=== PATIENT | male | born 1985 | race Caucasian/White ===

== ENCOUNTER 2022-10-03 18:24 | Observation (INO) | payer OTHER, SELFPAY ==
[2022-10-03] VITALS (10 sets, daily range): BP systolic 148–168; BP diastolic 73–89; PULSE 59–92; RESP 13–22; TEMP 36.2–36.5; O2SAT 97–100; BMI 39.4
--- NOTE | ~2022-10-03 | CT_ITS ---
EXAMINATION: CT abdomen pelvis wo con DATE: 10/03/2022 20:50 INDICATION: RUQ/RLQ pain, vomiting TECHNIQUE: Computed tomography (CT) of the abdomen and pelvis was performed without intravenous contr ast. Automated exposure control and iterative reconstruction technique were employed. The dose-length product was 1511.47 mGy-cm. COMPARISON: None. FINDINGS: Lower thorax: Minimal symmetric bilateral gynecomastia. Peripheral scar/granuloma in the right lower lobe. Liver: Normal. Biliary/Gallbladder: Gallbladder is absent. No bile duct dilation. Pancreas: No mass or duct dilation. Spleen: Normal. Adrenals:No mass. Kidneys: No mass, stone, or hydronephrosis. GI tract: Focal outpouching along the posterior margin of the first portion of the duodenum, with key rounding inflammatory change and prominent lymph nodes. Submucosal fat in the antrum, distal duodenum , as can be seen with chronic IBD, obesity, chemotherapy treatment, and celiac disease. No small or large bowel dilation. Normal appendix. Diverticulosis without diverticulitis. Mesentery/Peritoneum: No ascites, mass, or free air. Retroperitoneum: No mass. Pelvis: Pelvic organs are within normal limits. Soft Tissues: Soft tissues and body wall unremarkable. Bones: No acute osseous finding. IMPRESSION: Duodenal ulcer with surrounding duodenitis. No evidence of perforation. Reviewed, dictated and finalized at location K.
[2022-10-03 18:59] LABS: Basophils Percent Auto 0.3 % (0.2-1.2); Eosinophils Absolute Auto 0.2 K/mm3 (0-0.3); Hematocrit 39.8 % (42.0-52.0); Hemoglobin 13.5 g/dL (14.0-18.0); Immature Granulocyte Absolute 0.03 K/mm3 (0.00-0.031); Immature Granulocyte Percent A 0.3 % (0-0.5); Lymphocytes Percent Auto 27.6 % (18.3-44.2); Mean Corpuscular HGB Conc 33.9 g/dl (32-36); Mean Corpuscular Hemoglobin 32.5 pg (26-34); Mean Corpuscular Volume 95.7 fl (80-100); Mean Platelet Volume 9.9 fl (7.4-10.4); Monocytes Absolute Auto 0.5 K/mm3 (0.1-0.6); Monocytes Percent Auto 4.7 % (2.6-8.5); Neutrophils Absolute Auto 6.9 K/mm3 (1.3-6.7); Neutrophils Percent Auto 65.1 % (45.5-73.1); Platelet Count Result 455 k/mm3 (150-375); Red Blood Count 4.16 M/mm3 (4.6-6.20); White Blood Count 10.5 K/mm3 (4.5-10.0)
[2022-10-03 19:08] LABS: Alanine Aminotransferase 84 U/L (6-50); Albumin Level 4.8 g/dL (3.5-5.1); Alkaline Phosphatase 85 U/L (38-126); Anion Gap 10 mmol/L (8-16); Aspartate Amino Transferase 30 U/L (17-59); Bilirubin,Total 0.5 mg/dL (0.2-1.3); Blood Urea Nitrogen 12 mg/dL (9-20); Calcium 10.6 mg/dL (8.4-10.2); Carbon Dioxide 25 mmol/L (22-30); Chloride 106 mmol/L (98-107); Estimated CRCL calculation 108 ml/min; Estimated Glomerular Filt Rate > 60; Glucose 119 mg/dL (65-110); Lipase 146 U/L (23-300); Potassium 3.9 mmol/L (3.4-5.0); Sodium 141 mmol/L (137-145)
[2022-10-03 20:40] LABS: Appearance Urine Clear (Clear); Bilirubin Urine Negative (Negative); Blood Urine Negative (Negative); Color Urine Yellow (Yellow); Glucose Urine UA Negative (Negative); Ketones Urine Negative (Negative); Leukocyte Esterase Ur Negative LEU/UL (Negative); Nitrate Urine Negative (Negative); Protein Urine Negative (Negative); Specific Grav Ur 1.017 (1.001-1.035); Urobilinogen Urine 0.2 mg/dL (<2.0); pH Urine 6.5 (5.0-9.0)
[2022-10-03 20:44] LABS: Add Urine Microscopic? NO
[2022-10-03] MEDS: ONDANSETRON INJ 4 MG/2 ML VIAL IV PUSH (21:00)
[2022-10-03] MEDS: HYDROmorphone HCL INJ (*CRX) 1 MG/ML SYR 0.5 MG IV PUSH ×2 (21:00→22:32)
[2022-10-03] MEDS: SODIUM CHLORIDE 0.9% IV 1,000 ML 999 ML IV CONT (21:01)
[2022-10-03] MEDS: PANTOPRAZOLE SODIUM IV 40 MG VIAL IV PUSH (22:00)
--- NOTE | 2022-10-03 22:00 | PM.IMHP ---
H&P: HPI History of Present Illness Date/Time: 10/03/22 22:00 Chief Complaint: Abdominal pain Narrative: This is a 37-year-old male with past medical history significant for epilepsy, vagal nerve stimulator implant, patient presents to the emergency room due to right upper quadrant pain, nausea, vomiting, 3 day duration no hematemesis no coffee-ground emesis no melena no bright red blood per rectum, has had a 30 lb weight loss in 6 months unintentional. Patient denies any fevers, rigors, chills, cough, sputum production. Preliminary workup was significant for CT of abdomen and pelvis was reported as: EXAMINATION: CT abdomen pelvis wo con DATE: 10/03/2022 20:50 INDICATION: RUQ/RLQ pain, vomiting TECHNIQUE: Computed tomography (CT) of the abdomen and pelvis was performed without intravenous contrast. Automated exposure control and iterative reconstruction technique were employed. The dose-length product was 1511.47 mGy-cm. COMPARISON: None. FINDINGS: Lower thorax: Minimal symmetric bilateral gynecomastia. Peripheral scar/granuloma in the right lower lobe. Liver: Normal.? Biliary/Gallbladder: Gallbladder is absent. No bile duct dilation. Pancreas: No mass or duct dilation. Spleen: Normal. Adrenals:No mass. Kidneys: No mass, stone, or hydronephrosis. GI tract: Focal outpouching along the posterior margin of the first portion of the duodenum, with surrounding inflammatory change and prominent lymph nodes. Submucosal fat in the antrum, distal duodenum, as can be seen with chronic IBD, obesity, chemotherapy treatment, and celiac disease.? No small or large bowel dilation. Normal appendix. Diverticulosis without diverticulitis. Mesentery/Peritoneum: No ascites, mass, or free air. Retroperitoneum: No mass. Pelvis: Pelvic organs are within normal limits. Soft Tissues: Soft tissues and body wall unremarkable. Bones:? No acute osseous finding. IMPRESSION: Duodenal ulcer with surrounding duodenitis. No evidence of perforation. Patient has been admitted for further evaluation management and treatment. Review of Systems Review of Systems: Right upper quadrant pain radiating to the back Constitutional: Constitutional: Denies chills, Denies fever(s), Denies malaise, Denies weakness and Reports weight loss Eyes: Eyes: Denies change in vision ENT: Denies dysphagia and Denies odynophagia Cardiovascular: Cardiovascular: Denies chest pain, Denies leg edema and Denies palpitations Respiratory: Respiratory: Denies cough, Denies excessive phlegm production and Denies dyspnea Gastrointestinal: Gastrointestinal: Reports abdominal pain (Right upper quadrant pain), Denies melena, Denies hematochezia, Denies coffee ground emesis, Denies dyspepsia, Denies heartburn, Reports diarrhea, Reports loose stools, Reports nausea and Reports vomiting Genitourinary: Genitourinary: Reports no additional male genitourinary complaints and Reports as per HPI Musculoskeletal: Musculoskeletal: Denies back pain, Denies joint swelling and Denies muscle weakness Integumentary/Breasts: Skin/Breast: Denies rash Neurologic: Denies focal weakness and Denies Sensory deficit (Neuro) Psychiatric: Psychiatric: Reports no additional psychiatric complaints and Reports as per HPI Endocrine: Endocrine: Denies cold intolerance, Denies flushing, Denies heat intolerance, Denies polyphagia, Denies polydipsia and Denies palpitations Hematologic/Lymphatic: Hematologic/Lymphatic: Reports no additional hematologic/lymphatic complaints and Reports as per HPI Allergic/Immunologic: Allergic/Immunologic: Reports no additional allergic/immunologic complaints and Reports as per HPI PMFSH Family History Family History Other Family history of arthritis Family history of seizure disorder Hypertension Social History Social History Smoking status: Never smoker Alcoh
--- NOTE | 2022-10-03 22:07 | ED.ABDPAIN ---
HPI - Abdominal Pain General Chief Complaint: Abdominal Pain Stated Complaint: R abd pain Time Seen by Provider: 10/03/22 20:33 History of Present Illness HPI narrative: Patient is a 37-year-old male with a history of epilepsy presenting with abdominal pain. Patient states that he has had intermittent epigastric and right upper quadrant pain for the last several weeks. States that over the last 1 to 2 weeks the pain has become constant. States that over the last several days he has been nauseated and vomiting. States that he does not drive due to his epilepsy and he was unable to get a ride until today. States that he has had a cholecystectomy. Still has his appendix. Denies fevers or chills, headache, numbness or weakness, chest pain, shortness of breath, dysuria, hematuria, constipation. Reports some diarrhea. Related Data Home Medications Medication Instructions Recorded Confirmed clonazepam 1 mg tablet 1 mg PO Q12H 10/03/22 10/03/22 divalproex 250 mg tablet,delayed 125 mg PO BID 10/03/22 10/03/22 release gabapentin 300 mg capsule 300 mg PO TID 10/03/22 10/03/22 lacosamide 200 mg tablet 200 mg PO Q12H 10/03/22 10/03/22 lacosamide 50 mg tablet 50 mg PO Q12H 10/03/22 10/03/22 levetiracetam 1,000 mg tablet 2,500 mg PO Q12H 10/03/22 10/03/22 zonisamide 100 mg capsule 600 mg PO Q12H 10/03/22 10/03/22 Allergies Allergy/AdvReac Type Severity Reaction Status Date / Time carbamazepine Allergy Unknown Unknown Verified 10/05/22 10:24 erythromycin base Allergy Unknown Unknown Verified 10/05/22 10:24 ketorolac Allergy Unknown Unknown Verified 10/05/22 10:24 tramadol Allergy Unknown Unknown Verified 10/05/22 10:24 NKFA Allergy Unknown Unknown Uncoded 10/05/22 10:23 Review of Systems Review of Systems: All systems reviewed & are unremarkable except as noted in HPI and below PMFSH Past Medical History Medical History (Updated 10/08/22 @ 21:06 by Raquel Roach MD) GERD (gastroesophageal reflux disease) Nausea and vomiting in adult Surgical History Surgical History (Updated 10/05/22 @ 10:16 by David Saldaña DO) Status post VNS (vagus nerve stimulator) placement Family History Family History Other Family history of arthritis Family history of seizure disorder Hypertension Social History Social History Smoking status: Never smoker Alcohol intake: never Substance use: never Lack of Transportation: No Lack of Food: Never True Current Housing: I Have Housing Concerned About Future Housing: No Difficulty Paying Gas/Electric Bills: No Difficulty Paying for Meds: No Currently Unemployed: No Education: High School Diploma/GED Difficulty w/ Childcare or Family Care: No Spiritual care concerns: No Exam Narrative: GENERAL: appears uncomfortable, nontoxic, pleasant and cooperative HEAD: Normocephalic, atraumatic. EYES: PERRLA and EOMI. ENT: Nares clear, no rhinorrhea or epistaxis. Mucous membranes moist. NECK: Supple. CHEST: Clear to auscultation. No respiratory distress. HEART: Regular rate and rhythm ABDOMEN: Soft, +RUQ/epigastric tenderness w/o guarding or rebound EXTREMITIES: Normal range of motion. No edema. SKIN: Warm, dry, no rash. NEURO: No focal deficits. Alert and oriented x3. PSYCH: Normal mood and affect. Course Vital Signs Vital signs: Vital Signs Temperature 97.1 F L 10/03/22 18:25 Pulse Rate 92 10/03/22 18:25 Respiratory Rate 18 10/03/22 18:25 Blood Pressure 164/83 H 10/03/22 18:25 Pulse Oximetry 100 10/03/22 18:25 Oxygen Delivery Room Air 10/03/22 18:25 Temperature 97.4 F L 10/05/22 10:26 Pulse Rate 60 10/05/22 11:07 Respiratory Rate 20 10/05/22 11:07 Blood Pressure 117/79 10/05/22 11:07 Pulse Oximetry 100 10/05/22 11:07 Oxygen Delivery Room Air 10/05/22 11:07 MDM - Abdominal Andrew
[2022-10-03] MEDS: PANTOPRAZOLE SODIUM IV 80 MG in SODIUM CHLORIDE 0.9% IV 500 ML 50 MG IV CONT (22:32)
--- NOTE | 2022-10-03 23:29 | ADMGEN ---
This patient, Jonny Capone, was admitted to Medical Room 261-01. Patient/family oriented to hospital policies and general routines including ID bracelet, bed and alarms, visiting hours, pain management, procedures, bathroom and other care routines, personal items, smoking policy, room service/diet, and visiting hours. Information on how to activate the Rapid Response Team has been discussed. Patient/Family are encouraged to report perceived risks to care and to ask questions if they do not understand what they are told or what they should do.
--- NOTE | 2022-10-04 02:39 | PC.NURSE ---
Called Dr. Camacho to ask if pt is able to take medications tonight. Medications originally scheduled for 0900 today. Pt has hx of epilepsy and did not take medication tonight. Dr. Camacho said pt can have medications with sips of water, time would have to be changed by pharmacy, however. Pharmacist called and Pharmacist Communication order was put in to reschedule medications for now.
[2022-10-04] MEDS: levETIRAcetam 500 MG TABLET 2500 MG PO ×3 (02:52→20:52)
[2022-10-04] MEDS: ZONISAMIDE 100 MG CAPSULE 600 MG PO ×3 (02:52→20:51)
[2022-10-04] MEDS: DIVALPROEX SODIUM DR 125 MG TABEC PO ×3 (02:53→16:42)
[2022-10-04] MEDS: GABAPENTIN 300 MG CAPSULE PO ×4 (02:53→16:42)
[2022-10-04] MEDS: LACOSAMIDE (*CRX) 50 MG TABLET PO ×3 (02:53→20:52)
[2022-10-04] MEDS: LACOSAMIDE (*CRX) 200 MG TABLET PO ×3 (02:53→20:52)
[2022-10-04] MEDS: clonazePAM (*CRX) 0.5 MG TABLET 1 MG PO ×3 (03:02→20:52)
[2022-10-04 05:34] VITALS: BP 130/76; PULSE 71; RESP 18; TEMP 36.6; O2SAT 100
[2022-10-04] MEDS: SUCRALFATE SUSP 100 MG/ML 10 ML UDC 1000 MG PO ×4 (06:18→20:52)
[2022-10-04] MEDS: HYDROmorphone HCL INJ (*CRX) 1 MG/ML SYR IV PUSH (06:18)
--- NOTE | 2022-10-04 10:30 | PM.IMPN ---
Progress Note: A&P Assessment and Plan (1) Duodenal ulcer: Code(s): K26.9 - Duodenal ulcer, unspecified as acute or chronic, without hemorrhage or perforation Status: Acute Assessment and Plan: presented with abdominal pain, nausea, vomiting for [address] of the abdomen and pelvis showed duodenal also was surrounding duodenitis no evidence of perforation GI consulted Protonix drip changed to IV Protonix b.i.d. Carafate a.c. and HS continued GI consulted pain medications on board antiemetics on board (2) Epigastric abdominal pain: Code(s): R10.13 - Epigastric pain Status: Acute Assessment and Plan: Likely secondary to duodenal ulcer could be related to GERD as well continue Protonix b.i.d. (3) Epilepsia: Code(s): G40.909 - Epilepsy, unspecified, not intractable, without status epilepticus Status: Acute Assessment and Plan: Resume home meds fall pork acid, lacosamide, Keppra, zonisamide Vagal nerve stimulator in place chronic and stable seizure precaution Time Spent With Patient Time: 48 minutes Time with patient: Greater than 35 minutes Subjective Date/time seen: 10/04/22 1030 Interval history: 10/04/22 103 patient stated that he is still having some pain in his abdomen which he currently rates a 5/10. It is on the right side and does get worse with light palpation. She also states that he has pain when he breathes real deep on the right upper quadrant as well. he denies any chest pain, shortness a breath, constipation, diarrhea, nausea or vomiting. 10/03/22? 22:00 This is a 37-year-old male with past medical history significant for epilepsy, vagal nerve stimulator implant, patient presents to the emergency room due to right upper quadrant pain, nausea, vomiting, 3 day duration no hematemesis no coffee-ground emesis no melena no bright red blood per rectum, has had a 30 lb weight loss in 6 months unintentional.? Patient denies any fevers, rigors, chills, cough, sputum production.? Review of Systems Review of Systems: All systems reviewed & are unremarkable except as noted in HPI and below Exam Narrative: General: well-nourished, well-appearing 37-year-old male, laying in bed, uncomfortable, NARD Neuro: awake, alert and oriented x4, speech clear, no focal neuro deficits noted HEENMT: normocephalic, atraumatic, EOMI, sclerae anicteric, moist oral mucosa Respiratory: Clear to auscultation bilaterally without crackles, rhonchi or wheezes, nonlabored breathing Cardio: regular rate, regular rhythm with S1-S2 Abdomen: nondistended, normoactive bowel sounds, soft, tender to palpation in the right upper quadrant Extremities: no edema, erythema, or tenderness to palpation, DP pulses 2+ bilaterally Skin: no rashes or lesions, warm and dry Psych: appropriate mood and affect, judgment and insight intact Objective Data Vital Signs Vital Signs: Vital Signs - 24 hr 10/03/22 18:25 10/03/22 21:02 10/03/22 21:17 Temperature 97.1 F L Pulse Rate 92 76 70 Respiratory Rate 18 18 18 Blood Pressure 164/83 H 168/85 H 157/86 H Pulse Oximetry 100 100 100 Oxygen Delivery Room Air 10/03/22 21:31 10/03/22 22:32 10/03/22 22:33 Temperature Pulse Rate 73 62 59 L Respiratory Rate 16 13 14 Blood Pressure 161/89 H 154/73 H Pulse Oximetry 98 100 99 Oxygen Delivery 10/03/22 22:45 10/03/22 22:46 10/03/22 23:03 Temperature Pulse Rate 73 68 68 Respiratory Rate 15 14 22 H Blood Pressure 148/82 H Pulse Oximetry 98 97 Oxygen Delivery 10/03/22 23:39 10/03/22 23:16 10/04/22 05:34 Temperature 97.7 F 97.8 F Pulse Rate 80 71 Respiratory Rate 18 18 Blood Pressure 150/80 H 130/76 Pulse Oximetry 100 100 Oxygen Delivery Room Air 10/04/22 08:00 10/04/22 10:37 Temperature Pulse Rate Respiratory Rate Blood Pressure Pulse Oximetry 98 Oxyg
[2022-10-04 10:37] VITALS: O2SAT 98
[2022-10-04] MEDS: HYDROcodone/acetaminophen (*CRX) 5-325 MG TABLET 1 TAB PO (11:53)
--- NOTE | 2022-10-04 13:46 | WPDGICN ---
Assessment and Plan Assessment and plan (1) Duodenal ulcer: Code(s): K26.9 - Duodenal ulcer, unspecified as acute or chronic, without hemorrhage or perforation Status: Acute Assessment and Plan: continue iv protonix twice daily will proceed with egd tomorrow no overt gib monitor for signs of bleeding (2) Epigastric abdominal pain: Code(s): R10.13 - Epigastric pain Status: Acute Assessment and Plan: probably from duodenal ulcer (3) Nausea and vomiting in adult: Code(s): R11.2 - Nausea with vomiting, unspecified Status: Acute Assessment and Plan: better (4) Epilepsia: Code(s): G40.909 - Epilepsy, unspecified, not intractable, without status epilepticus Status: Acute Assessment and Plan: on meds GI Consult Note Consult date/time: 10/04/22 13:46 Reason for consult: ruq pain, n/v HPI: Jonny Capone is a 37 year old male with past medical history significant for epilepsy on meds, vagal nerve stimulator implant here with 3 days of progressive pain in ruq associated to nausea, vomiting, denies coffee-ground emesis no melena, also had a 30 lb weight loss in 6 months unintentional.?He denies nsaid's, denies gerd symptoms, never had egd and he is not using ppi. Review of Systems Constitutional: Constitutional: Denies chills Eyes: Eyes: Denies blurry vision ENT: Reports Normal hearing present Cardiovascular: Cardiovascular: Denies chest pain Respiratory: Respiratory: Denies cough Gastrointestinal: Gastrointestinal: Reports abdominal pain and Reports nausea Genitourinary: Genitourinary: Denies hematuria Musculoskeletal: Musculoskeletal: Denies arthralgias Integumentary/Breasts: Skin/Breast: Denies rash Neurologic: Comments: h/o seizures Psychiatric: Psychiatric: Denies anxiety PMFSH Past Medical History Medical History (Updated 10/04/22 @ 13:48 by Deshawn Bella MD) Nausea and vomiting in adult Family History Family History Other Family history of arthritis Family history of seizure disorder Hypertension Social History Social History Smoking status: Never smoker Alcohol intake: never Substance use: never Lack of Transportation: No Lack of Food: Never True Current Housing: I Have Housing Concerned About Future Housing: No Difficulty Paying Gas/Electric Bills: No Difficulty Paying for Meds: No Currently Unemployed: No Education: High School Diploma/GED Difficulty w/ Childcare or Family Care: No Spiritual care concerns: No Meds Home Medications and Allergies Home Medications Medication Instructions Recorded Confirmed Type clonazepam 1 mg tablet 1 mg PO Q12H 10/03/22 10/03/22 History diclofenac sodium 75 mg 75 mg PO BID PRN Pain 10/03/22 10/03/22 History tablet,delayed release divalproex 250 mg tablet,delayed 125 mg PO BID 10/03/22 10/03/22 History release gabapentin 300 mg capsule 300 mg PO TID 10/03/22 10/03/22 History lacosamide 200 mg tablet 200 mg PO Q12H 10/03/22 10/03/22 History lacosamide 50 mg tablet 50 mg PO Q12H 10/03/22 10/03/22 History levetiracetam 1,000 mg tablet 2,500 mg PO Q12H 10/03/22 10/03/22 History zonisamide 100 mg capsule 600 mg PO Q12H 10/03/22 10/03/22 History Allergies Allergy/AdvReac Type Severity Reaction Status Date / Time carbamazepine Allergy Unknown Verified 03/22/11 07:38 erythromycin base Allergy Unknown Verified 03/22/11 07:38 ketorolac Allergy Unknown Verified 03/22/11 07:38 tramadol Allergy Unknown Verified 03/22/11 07:39 KETOROLAC TROMETHAMINE Allergy Mild Uncoded 04/20/11 11:36 NKFA Allergy Unknown Uncoded 04/20/11 11:36 TEGRETOL Allergy Unknown Uncoded 04/20/11 11:36 Vital Signs Vital Signs - 24 hr 10/03/22 18:25 10/03/22 21:02 10/03/22 21:17 Temperature 97.1 F L Pulse Rate 92 76
[2022-10-04 14:07] VITALS: BP 121/72; PULSE 64; RESP 16; TEMP 36.8; O2SAT 98
[2022-10-04 20:00] VITALS: PULSE 78; RESP 18; O2SAT 100
[2022-10-04] MEDS: PANTOPRAZOLE SODIUM IV 40 MG VIAL IV PUSH (20:51)
[2022-10-04 20:59] VITALS: BP 124/83; PULSE 78; RESP 18; TEMP 36.2; O2SAT 100
[2022-10-05 05:22] VITALS: BP 110/55; PULSE 70; RESP 20; TEMP 36.3; O2SAT 97
[2022-10-05 05:41] LABS: Alanine Aminotransferase 91 U/L (6-50); Albumin Level 3.8 g/dL (3.5-5.1); Alkaline Phosphatase 80 U/L (38-126); Anion Gap 9 mmol/L (8-16); Aspartate Amino Transferase 44 U/L (17-59); Bilirubin,Total 0.6 mg/dL (0.2-1.3); Blood Urea Nitrogen 11 mg/dL (9-20); Calcium 8.5 mg/dL (8.4-10.2); Carbon Dioxide 25 mmol/L (22-30); Chloride 108 mmol/L (98-107); Estimated CRCL calculation 97 ml/min; Estimated Glomerular Filt Rate > 60; Glucose 91 mg/dL (65-110); Magnesium 1.8 mg/dL (1.6-2.3); Potassium 3.8 mmol/L (3.4-5.0); Sodium 142 mmol/L (137-145)
[2022-10-05 05:42] LABS: Basophils Percent Auto 0.4 % (0.2-1.2); Eosinophils Absolute Auto 0.3 K/mm3 (0-0.3); Eosinophils Percent Auto 3.5 % (0-4.4); Hematocrit 35.3 % (42.0-52.0); Hemoglobin 11.8 g/dL (14.0-18.0); Immature Granulocyte Absolute 0.03 K/mm3 (0.00-0.031); Immature Granulocyte Percent A 0.4 % (0-0.5); Lymphocytes Absolute Auto 3.38 K/mm3 (0.9-3.2); Lymphocytes Percent Auto 41.7 % (18.3-44.2); Mean Corpuscular HGB Conc 33.4 g/dl (32-36); Mean Corpuscular Hemoglobin 32.7 pg (26-34); Mean Corpuscular Volume 97.8 fl (80-100); Mean Platelet Volume 10.1 fl (7.4-10.4); Monocytes Absolute Auto 0.4 K/mm3 (0.1-0.6); Monocytes Percent Auto 5.4 % (2.6-8.5); Neutrophils Percent Auto 48.6 % (45.5-73.1); Platelet Count Result 371 k/mm3 (150-375); Red Blood Count 3.61 M/mm3 (4.6-6.20); White Blood Count 8.1 K/mm3 (4.5-10.0)
[2022-10-05] MEDS: SUCRALFATE SUSP 100 MG/ML 10 ML UDC 1000 MG PO ×2 (06:05→11:40)
[2022-10-05] MEDS: clonazePAM (*CRX) 0.5 MG TABLET 1 MG PO (07:46)
[2022-10-05] MEDS: DIVALPROEX SODIUM DR 125 MG TABEC PO (07:46)
[2022-10-05] MEDS: GABAPENTIN 300 MG CAPSULE PO ×2 (07:47→12:00)
[2022-10-05] MEDS: LACOSAMIDE (*CRX) 50 MG TABLET PO (07:47)
[2022-10-05] MEDS: ZONISAMIDE 100 MG CAPSULE 600 MG PO (07:48)
[2022-10-05] MEDS: levETIRAcetam 500 MG TABLET 2500 MG PO (07:48)
[2022-10-05] MEDS: PANTOPRAZOLE SODIUM IV 40 MG VIAL IV PUSH (07:48)
[2022-10-05] MEDS: LACOSAMIDE (*CRX) 200 MG TABLET PO (07:50)
--- NOTE | 2022-10-05 10:16 | WPDANESEPPF ---
Anes - Initial Pre Proc Eval Procedure: Operation Date: 10/05/22 14:30 Proposed Procedures p Esophagogastroduodenoscopy - Deshawn Bella MD Date/Time: 10/05/22 10:16 Surgeon: Windy Eden PA-C Pre Op Diagnosis: Duodenal Ulcer Patient Data Age: 37 Gender: M Height: 1.7 m Weight: 114.2 kg Last Vital Signs Temp 36.3 C L 10/05/22 05:22 Pulse 70 10/05/22 05:22 Resp 20 10/05/22 05:22 BP 110/55 L 10/05/22 05:22 Pulse Ox 97 10/05/22 05:22 O2 Del Method Room Air 10/05/22 08:00 Allergies Allergy/AdvReac Type Severity Reaction Status Date / Time carbamazepine Allergy Unknown Unknown Verified 10/05/22 10:24 erythromycin base Allergy Unknown Unknown Verified 10/05/22 10:24 ketorolac Allergy Unknown Unknown Verified 10/05/22 10:24 tramadol Allergy Unknown Unknown Verified 10/05/22 10:24 KETOROLAC TROMETHAMINE Allergy Mild Unknown Uncoded 10/05/22 10:23 NKFA Allergy Unknown Unknown Uncoded 10/05/22 10:23 TEGRETOL Allergy Unknown Unknown Uncoded 10/05/22 10:23 Home Medications Medication Instructions Recorded Confirmed Type clonazepam 1 mg tablet 1 mg PO Q12H 10/03/22 10/03/22 History diclofenac sodium 75 mg 75 mg PO BID PRN Pain 10/03/22 10/03/22 History tablet,delayed release divalproex 250 mg tablet,delayed 125 mg PO BID 10/03/22 10/03/22 History release gabapentin 300 mg capsule 300 mg PO TID 10/03/22 10/03/22 History lacosamide 200 mg tablet 200 mg PO Q12H 10/03/22 10/03/22 History lacosamide 50 mg tablet 50 mg PO Q12H 10/03/22 10/03/22 History levetiracetam 1,000 mg tablet 2,500 mg PO Q12H 10/03/22 10/03/22 History zonisamide 100 mg capsule 600 mg PO Q12H 10/03/22 10/03/22 History Laboratory Tests 10/05/22 05:00 WBC 8.1 K/mm3 (4.5-10.0) RBC 3.61 L M/mm3 (4.6-6.20) Hgb 11.8 L g/dL (14.0-18.0) Hct 35.3 L % (42.0-52.0) MCV 97.8 fl (80-100) MCH 32.7 pg (26-34) MCHC 33.4 g/dl (32-36) RDW 13.0 % (11.5-14.5) Plt Count 371 k/mm3 (150-375) MPV 10.1 fl (7.4-10.4) Immature Gran % (Auto) 0.4 % (0-0.5) Neut % (Auto) 48.6 % (45.5-73.1) Lymph % (Auto) 41.7 % (18.3-44.2) [place] % (Auto) 5.4 % (2.6-8.5) Eos % (Auto) 3.5 % (0-4.4) Baso % (Auto) 0.4 % (0.2-1.2) Lymph # (Auto) 3.38 H K/mm3 (0.9-3.2) [place] # (Auto) 0.4 K/mm3 (0.1-0.6) Eos # (Auto) 0.3 K/mm3 (0-0.3) Baso # (Auto) 0.0 K/mm3 (0.0-0.1) Abs Immat Gran (auto) 0.03 K/mm3 (0.00-0.031) Absolute Neuts (auto) 4.0 K/mm3 (1.3-6.7) Absolute Nucleated RBC 0.0 K/mm3 (0.0-0.012) Nucleated RBC % 0.0 % (0.0-0.2) Sodium 142 mmol/L (137-145) Potassium 3.8 mmol/L (3.4-5.0) Chloride 108 H mmol/L (98-107) Carbon Dioxide 25 mmol/L (22-30) Anion Gap 9 mmol/L (8-16) BUN 11 mg/dL (9-20) Creatinine 1.10 mg/dL (0.7-1.3) Estim Creat Clear Calc 97 ml/min Estimated GFR > 60 (59 - ) Glucose 91 mg/dL (65-110) Calcium 8.5 mg/dL (8.4-10.2) Magnesium 1.8 mg/dL (1.6-2.3) Total Bilirubin 0.6 mg/dL (0.2-1.3) AST 44 U/L (17-59) ALT 91 H U/L (6-50) Alkaline Phosphatase 80 U/L (38-126) Total Protein 6.0 L g/dL (6.3-8.2) Albumin 3.8 g/dL (3.5-5.1) Patient hx anesthesia problems: none Family hx anesthesia problems: none Results Review: All pre-operative results and documents have been reviewed as part of the pre-operative evaluation. [facility] Past Medical History Medical History (Updated 10/05/22 @ 10:16 by David Saldaña DO) GERD (gastroesophageal reflux disease) Nausea and vomiting in adult Surgical History Surgical History (Updated 10/05/22 @ 10:16 by David Saldaña DO) Status post VNS (vagus nerve stimulator) placement Family History Family History Other Family history of arthritis Family history of seizure di
[2022-10-05 10:26] VITALS: BP 125/75; PULSE 72; RESP 16; TEMP 36.3; O2SAT 100
[2022-10-05] MEDS: LACTATED RINGERS 1,000 ML 150 ML IV CONT (10:31)
[2022-10-05 10:47] VITALS: BP 97/54; PULSE 66; RESP 22; O2SAT 98
[2022-10-05 10:57] VITALS: BP 100/56; PULSE 65; RESP 20; O2SAT 99
[2022-10-05 11:07] VITALS: BP 117/79; PULSE 60; RESP 20; O2SAT 100
[2022-10-05] MEDS: HYDROcodone/acetaminophen (*CRX) 5-325 MG TABLET 1 TAB PO (11:40)
--- NOTE | 2022-10-05 12:50 | PCCCNOTE ---
On 10/05/22, the student, [Karin Solano], provided care and completed [facility] documentation on this patient. I have reviewed the student's documentation and agree with the findings.
--- NOTE | 2022-10-05 13:07 | PM.DS ---
DS: Admitting Diagnosis Discharge Date 10/05/2022 Admitting Diagnosis Abdominal pain DS: Discharge Diagnosis Discharge Diagnosis (1) Duodenal ulcer: Code(s): K26.9 - Duodenal ulcer, unspecified as acute or chronic, without hemorrhage or perforation Status: Acute Assessment and Plan: Patient presented with abdominal pain, nausea, and vomiting. CT of the abdomen/pelvis on presentation showed 1 ulcer with surrounding duodenitis without evidence of perforation. Patient was seen in consultation by Gastroenterology. Initially placed on Protonix drip, transition to p.o. Protonix 40 mg b.i.d.. Patient will continue this as an outpatient. EGD showed gastritis with duodenal ulcer. No evidence of active bleeding H&H remained stable. NSAIDs discontinued. (2) Epigastric abdominal pain: Code(s): R10.13 - Epigastric pain Status: Acute Assessment and Plan: Secondary to above (3) Anemia: Qualifiers: Anemia type: unspecified type Qualified Code(s): D64.9 - Anemia, unspecified Code(s): D64.9 - Anemia, unspecified Status: Acute Assessment and Plan: Normocytic. H&H slightly decreased, however remains stable with no evidence of ongoing bleeding. Continue with outpatient monitoring (4) Epilepsia: Code(s): G40.909 - Epilepsy, unspecified, not intractable, without status epilepticus Status: Acute Assessment and Plan: Patient with longstanding history of epilepsy maintained on multiple antiepileptic medications with vagal nerve stimulator in place. Seizure precautions initiated during admission. Continue outpatient follow-up with his neurologist. DS: Summary Hospital Course Hospital Course: Date of admission: 10/03/2022 Date of discharge: 10/05/2022 Jonny Capone is a 37 year old male with a history of epilepsy s/p vagal nerve stimulator, GERD, and arthritis who presented to the emergency department on 10/03/2022 with complaints of epigastric pain ongoing for several weeks. He denied hematemesis, melena, or hematochezia. On presentation to the ED, his vital signs were stable, WBC 10.5, hemoglobin 13 point, hematocrit 39.8, platelets 455, BMP unremarkable, CT of abdomen/pelvis showed 1 ulcer with surrounding duodenitis without evidence of perforation. Patient was admitted to the hospitalist service for further evaluation and management was seen in consultation by Gastroenterology. Please see above for further details. Patient underwent EGD on 10/05/2022 which showed large duodenal ulcer with no active bleeding and gastritis. Biopsies were collected and patient will follow up with GI as an outpatient. He will need repeat EGD in 4 months to assess for healing. He was started on Protonix 40 mg twice a day which he will continue and will stop use of diclofenac and avoid additional NSAIDs. Discussed with the patient and his family regarding worrisome signs and symptoms for which to return and he was educated on his medications. He was discharged in hemodynamically stable condition on 10/05/2022. Time Spent with Patient Time attestation: Total time spent providing and/or coordinating discharge services: 40 minutes Time spent: Greater than 30 minutes Exam Narrative: General: Well-nourished, well-appearing 37-year-old male, sitting up in bed, comfortable, NARD Neuro: awake, alert and oriented x4, speech clear, no focal neuro deficits noted HEENMT: normocephalic, atraumatic, EOMI, sclerae anicteric, moist oral mucosa Respiratory: clear to auscultation bilaterally, nonlabored breathing Cardio: regular rate, regular rhythm with S1-S2 Abdomen: nondistended, normoactive bowel sounds, soft, nontender to palpation Extremities: no edema, erythema, or tenderness to palpation, DP pulses 2+ bilaterally Skin: no rashes or lesions, warm and dry Psych: appropriate mood and affect, judgment and insight intact DS: Data Data Completed and Pending
--- NOTE | 2022-10-05 13:36 | PC.NURSE ---
Patient ate 100% of lunch with no complaints of pain or nausea.
== END 2022-10-05 14:00 | disposition home or self-care (01) ==
LOC: ANHED 22:10 → ANH2MED 10-04 14:15
PROVIDERS: Internal Medicine Gastroenterology; Nurse Practitioner; Admitting Provider Internal Medicine; Emergency Provider Emergency Medicine; PCP Family Medicine; Visit Provider Physician Assistant
PROC: 0DJ08ZZ Inspection of Upper Intestinal Tract, Via Natural or Artificial Opening Endoscopic (ICD-10-PCS; CPT 43235; principal; 2022-10-05 14:30)
DX: K26.9 Duodenal ulcer, unspecified as acute or chronic, without hemorrhage or perforation (principal); K29.80 Duodenitis without bleeding; K29.70 Gastritis, unspecified, without bleeding; K21.9 Gastro-esophageal reflux disease without esophagitis; Z96.82 Presence of neurostimulator; D64.9 Anemia, unspecified; G40.909 Epilepsy, unspecified, not intractable, without status epilepticus; E66.9 Obesity, unspecified; Z68.39 Body mass index [BMI] 39.0-39.9, adult; R63.4 Abnormal weight loss; Z90.49 Acquired absence of other specified parts of digestive tract; Z79.899 Other long term (current) drug therapy; Z84.89 Family history of other specified conditions
CPT/HCPCS: 43239; 36415; 74176; 80053; 81003; 83690; 83735; 85025; 87081; 88305; 96361; 96365; 96374; 96375; 99285; A9270; C9113; G0378; J0131; J1170; J2405; J2704; J7030; J7040; J7120